=== PATIENT | male | born 1935 | race Two or more races ===

== ENCOUNTER 2020-01-10 12:42 | Emergency (ER) | payer MEDICARE, OTHER ==
[~2020-01-10] VITALS: Ht 162.6 cm; Wt 73.5 kg
--- NOTE | 2020-01-10 13:20 | NUR ---
Dr. Gordon at bedside assessing patient.
[2020-01-10] MEDS ORDERED: LIDOCAINE HCL 1% 20 ML VIAL IJ ONE (13:30)
--- NOTE | 2020-01-10 13:45 | NUR ---
Dr. Gordon at beside extracting fluid to send for infection.
--- NOTE | 2020-01-10 13:50 | NUR ---
Patient states some relief pain is 5/10.
--- NOTE | 2020-01-10 14:46 | NUR ---
Patient discharged to home in stable condition. Written and verbal after care instructions given. Patient verbalizes understanding of instructions. Stressed follow up or return to ER for worsening s/s. Follow up with orthopedic within the next 3 days.
[2020-01-10 14:47] VITALS: BP 102/68
== END 2020-01-10 14:45 | disposition home or self-care (01) ==
LOC: ER 12:42
DX: M70.21 Olecranon bursitis, right elbow (principal); Z85.46 Personal history of malignant neoplasm of prostate; F03.90 Unspecified dementia, unspecified severity, without behavioral disturbance, psychotic disturbance, mood disturbance, and anxiety; F41.9 Anxiety disorder, unspecified
CPT/HCPCS: 36415; 87070; 87077; A4663